=== PATIENT | female | born 1950 | race Caucasian/White ===

== ENCOUNTER → 2018-11-13 | Outpatient (CLI) | payer MEDICARE ==
[~2018-11-13] MED LIST: ALLER-TEC D 5-1 EACH PO; ALLERGY10 MG PO; CHOL10002 PO; ESTR2 PO; FLUSAL5005 INH; Flonase 0.05% N16 GM INH; LEVLIO1 PO; LEVSOD50 PO; MAGNESIUM100 MG PO; MAGNESIUM400 MG PO; NASACORT10.8 ML; NEBI10 PO; NEBI5 PO; Omeprazole20 M1; PRED10 PO; PSYL5.85P PO; RED YEAST RICE600 MG PO; VITAMIN D32000 UNIT PO; [UNRECOGNIZED DRUG - OTHER] INH
== END | disposition home or self-care (01) ==
LOC: LAB SHORT 07:59 → PLD 07:59
DX: K11.6 Mucocele of salivary gland (principal)
CPT/HCPCS: 88305; 88313

== ENCOUNTER 2019-01-29 23:29 | Observation (INO) | payer MEDICARE ==
[~2019-01-29] VITALS: Ht 170.2 cm; Wt 83.3 kg
[2019-01-30 00:13] LABS: BASOPHILS ABSOLUTE AUTO 0.04 K/mm3 (0.00-0.23); BASOPHILS PERCENT AUTO 0 % (0-2); EOSINOPHILS ABSOLUTE AUTO 1.42 K/mm3 (0.00-0.68); EOSINOPHILS PERCENT AUTO 12 % (0-6); Hematocrit 46.6 % (33.0-51.0); IMMATURE GRAN ABSOLUTE AUTO 0.05 K/mm3 (0.00-0.10); IMMATURE GRAN PERCENT AUTO 0 % (0-1); LYMPHOCYTES ABSOLUTE AUTO 5.35 K/mm3 (0.84-5.20); LYMPHOCYTES PERCENT AUTO 45 % (21-46); MONOCYTES ABSOLUTE AUTO 0.71 K/mm3 (0.16-1.47); MONOCYTES PERCENT AUTO 6 % (4-13); Mean Corpuscular HGB 30.3 pg (26.0-34.0); Mean Corpuscular HGB Conc 32.2 g/dL (31.5-36.5); Mean Corpuscular Volume 94 fL (80-100); NEUTROPHILS ABSOLUTE AUTO 4.32 K/mm3 (1.96-9.15); NEUTROPHILS PERCENT AUTO 36 % (41-73); Platelet Count 270 K/mm3 (150-400); RDW Coefficient Variation 14.8 % (11.7-14.2); RDW Standard Deviation 51.4 fL (35.1-46.3); Red Blood Cell Count 4.95 M/mm3 (3.80-5.20); White Blood Cell Count 11.89 K/mm3 (4.00-11.30)
[2019-01-30 00:25] LABS: Source, Urine Clean Catch
[2019-01-30 00:30] LABS: Bilirubin, Urine Neg (Neg); Blood, Urine Neg (Neg); Glucose Qualitative, Urine Neg (Neg); Ketones, Urine Neg (Neg); Leukocyte Esterase, Urine Neg (Neg); Nitrite, Urine Neg (Neg); Protein, Urine Neg (Neg); Urobilinogen, Urine NORM (Normal); pH, Urine 6.5 (5.0-8.0)
[2019-01-30 00:31] LABS: Alanine Aminotransfer (ALT/SGP 32 U/L (12-78); Albumin/Globulin Ratio 1.1 (0.8-1.8); Alk Phos 50 U/L (50-136); Anion Gap 8 mmol/L (6-16); Aspartate Aminotrans (AST/SGOT 17 U/L (12-37); Bilirubin, Total 0.5 mg/dL (0.1-1.0); Blood Urea Nitrogen 12 mg/dL (8-24); Bun/Creatinine Ratio 15.9 (12.0-20.0); CO2, Blood 27 mmol/L (21-32); Calcium, Blood 8.2 mg/dL (8.5-10.1); Chloride, Blood 109 mmol/L (98-108); Creatinine, Blood 0.75 mg/dL (0.40-1.00); Globulin, Blood 2.8 g/dL (2.2-4.0); Glomerular Filtration Rate >60 (60-); Glucose, Blood 85 mg/dL (70-99); Potassium, Blood 3.5 mmol/L (3.5-5.5); Sodium, Blood 144 mmol/L (136-145); Total Protein, Blood 5.8 g/dL (6.4-8.2)
[2019-01-30 00:32] LABS: Appearance, Urine Clear (Clear); Color, Urine Yellow (P-Yellow)
[2019-01-30] MEDS ORDERED: Prednisone10 MG PO ×2 (01:51→11:38)
[2019-01-30] MEDS ORDERED: FLUT1DIS8 INH (01:51)
[2019-01-30] MEDS ORDERED: Activella 0.5-1 EACH PO (01:52)
[2019-01-30] MEDS ORDERED: METO50 PO (01:52)
[2019-01-30] MEDS ORDERED: LEVSOD100 PO (01:53)
[2019-01-30] MEDS ORDERED: BUDE.25 NEB (01:53)
[2019-01-30] MEDS ORDERED: OMEPRAZOLE20 MG PO (06:37)
--- NOTE | 2019-01-30 07:13 | NUR ---
PT ARRIVED APPROX 0545. NOTED HER TONGUE SEEMED TO TAKE UP MOST OF HER MOUTH AND SIDES OF FACE WERE POCKETS OF FLUID AND UNDER HER CHIN. NO C/O PAIN. REPORT GIVEN TO SARABJIT COLINDRES.
[2019-01-30 08:23] LABS: Hematocrit 49.1 % (33.0-51.0); Hemoglobin 15.6 g/dL (11.5-16.0); Mean Corpuscular HGB Conc 31.8 g/dL (31.5-36.5); Mean Corpuscular Volume 94 fL (80-100); RDW Coefficient Variation 14.8 % (11.7-14.2); RDW Standard Deviation 51.3 fL (35.1-46.3); White Blood Cell Count 8.62 K/mm3 (4.00-11.30)
[2019-01-30 08:33] LABS: Alanine Aminotransfer (ALT/SGP 33 U/L (12-78); Albumin, Blood 2.8 g/dL (3.4-5.0); Alk Phos 51 U/L (50-136); Anion Gap 8 mmol/L (6-16); Aspartate Aminotrans (AST/SGOT 18 U/L (12-37); Bilirubin, Total 0.7 mg/dL (0.1-1.0); Blood Urea Nitrogen 12 mg/dL (8-24); Bun/Creatinine Ratio 21.1 (12.0-20.0); CO2, Blood 20 mmol/L (21-32); Calcium, Blood 7.9 mg/dL (8.5-10.1); Chloride, Blood 112 mmol/L (98-108); Creatinine, Blood 0.57 mg/dL (0.40-1.00); Globulin, Blood 2.9 g/dL (2.2-4.0); Glomerular Filtration Rate >60 (60-); Glucose, Blood 121 mg/dL (70-99); Sodium, Blood 140 mmol/L (136-145); Total Protein, Blood 5.7 g/dL (6.4-8.2)
[2019-01-30 08:34] LABS: Mean Platelet Volume 11.7 fL (9.1-12.4); Platelet Count 129 K/mm3 (150-400)
[2019-01-30] MEDS ORDERED: BENADRYL25 MG PO (11:40)
[2019-01-30] MEDS ORDERED: FAMO20 PO (11:41)
--- NOTE | 2019-01-30 15:39 | NUR ---
SHIFT SUMMARY PT A&O, INDEPENDENT IN AND TO [facility] [place]. ADMITTED PRIOR TO START OF DAY SHIFT FOR FACIAL SWELLING, POSSIBLE ANGIOEDEMA. TONGUE AND THROAT SWOLLEN EARLIER, BUT IMPROVED SOME AFTER ADMIT AND STEROIDS. DR LOPEZ IN TO SEE PT, NEW ORDERS PLACED. ATTEMPTED ENT CONSULT FOR DR DOBBS, BUT NOT AVAILABLE UNTIL NEXT WEEK. DR LOPEZ NOTIFIED, NEW ORDERS PLACED TO D/C PT TO HOME ON PREDNISONE AND BENEDRYL AND TO FOLLOW UP WITH PCP AND SEND OUT LABS ORDERED. PT VERBALIZED UNDERSTANDING. TO TO TAKE PT HOME. TELE MX AND IV SITE D/C'D. TELE MX REPORTED PT ST AFTER GETTING UP TO [facility] [place] AND BACK. PT ON STEROIDS AND REPORTED THAT SHE IS ALWAYS ST D/T THE STEROIDS AND HADN'T YET HAD HER METOPROLOL. NO C/O. DENIED FURTHER NEEDS.
[2019-01-31 06:07] LABS: COMPLEMENT C3, SERUM 88 mg/dL (82-167); COMPLEMENT C4, SERUM 23 mg/dL (14-44)
[2019-02-27] MEDS ORDERED: OMEPRAZOLE20 MG PO (11:54)
== END 2019-01-30 12:13 | disposition home or self-care (01) ==
LOC: ER 23:29 → MEDS 23:30 → ENPENDDIS 01-30 11:00 → MEDS 01-30 12:13
PROVIDERS: Internal Medicine; Physician Assistant; ADMIT Internal Medicine
DX: T78.3XXA Angioneurotic edema, initial encounter (principal); E03.9 Hypothyroidism, unspecified; I10 Essential (primary) hypertension; J45.909 Unspecified asthma, uncomplicated; Z79.51 Long term (current) use of inhaled steroids; Z79.52 Long term (current) use of systemic steroids; Z79.899 Other long term (current) drug therapy; Z88.1 Allergy status to other antibiotic agents; Z88.2 Allergy status to sulfonamides; Z88.8 Allergy status to other drugs, medicaments and biological substances
CPT/HCPCS: 36415; 70491; 71046; 80053; 81003; 85025; 85027; 86160; 86161; 87081; 96374; 96375; 96376; 99285-25; G0378; J2930; Q0163; Q9967

== ENCOUNTER 2019-02-19 08:43 | Emergency (ER) | payer MEDICARE ==
[~2019-02-19] VITALS: Ht 170.2 cm; Wt 81.7 kg
[~2019-02-19 08:43] MED LIST changes: +Activella 0.5-1 EACH PO; +BENADRYL25 MG PO; +BUDE.25 NEB; +FAMO20 PO; +FLUT1DIS8 INH; +LEVSOD100 PO; +METO50 PO; +OMEPRAZOLE20 MG PO; +Prednisone10 MG PO
[2019-02-19] MEDS ORDERED: PRED5 PO (09:22)
[2019-02-19 09:53] LABS: BASOPHILS ABSOLUTE AUTO 0.02 K/mm3 (0.00-0.23); BASOPHILS PERCENT AUTO 0 % (0-2); EOSINOPHILS ABSOLUTE AUTO 0.82 K/mm3 (0.00-0.68); EOSINOPHILS PERCENT AUTO 8 % (0-6); Hematocrit 43.7 % (33.0-51.0); Hemoglobin 14.4 g/dL (11.5-16.0); IMMATURE GRAN ABSOLUTE AUTO 0.03 K/mm3 (0.00-0.10); IMMATURE GRAN PERCENT AUTO 0 % (0-1); LYMPHOCYTES ABSOLUTE AUTO 2.78 K/mm3 (0.84-5.20); LYMPHOCYTES PERCENT AUTO 28 % (21-46); MONOCYTES ABSOLUTE AUTO 0.62 K/mm3 (0.16-1.47); MONOCYTES PERCENT AUTO 6 % (4-13); Mean Corpuscular HGB 30.8 pg (26.0-34.0); Mean Corpuscular Volume 93 fL (80-100); Mean Platelet Volume 9.5 fL (9.1-12.4); NEUTROPHILS ABSOLUTE AUTO 5.67 K/mm3 (1.96-9.15); NEUTROPHILS PERCENT AUTO 57 % (41-73); Platelet Count 306 K/mm3 (150-400); RDW Coefficient Variation 15.1 % (11.7-14.2); RDW Standard Deviation 51.8 fL (35.1-46.3); Red Blood Cell Count 4.68 M/mm3 (3.80-5.20); White Blood Cell Count 9.94 K/mm3 (4.00-11.30)
[2019-02-19 10:09] LABS: Anion Gap 5 mmol/L (6-16); Blood Urea Nitrogen 10 mg/dL (8-24); Bun/Creatinine Ratio 16.1 (12.0-20.0); CO2, Blood 27 mmol/L (21-32); Calcium, Blood 8.3 mg/dL (8.5-10.1); Chloride, Blood 110 mmol/L (98-108); Creatinine, Blood 0.62 mg/dL (0.40-1.00); Glomerular Filtration Rate >60 (60-); Glucose, Blood 83 mg/dL (70-99); Potassium, Blood 3.6 mmol/L (3.5-5.5); Sodium, Blood 142 mmol/L (136-145)
[2019-02-19] MEDS ORDERED: ZYRTEC10 M2 PO (11:06)
[2019-02-19] MEDS ORDERED: Prednisone20 MG PO (11:06)
[2019-02-27] MEDS ORDERED: OMEPRAZOLE20 MG PO (11:54)
== END 2019-02-19 11:26 | disposition home or self-care (01) ==
LOC: ER 08:43
PROVIDERS: Emergency Medicine
DX: T78.3XXA Angioneurotic edema, initial encounter (principal); Z88.1 Allergy status to other antibiotic agents; Z88.2 Allergy status to sulfonamides; Z88.8 Allergy status to other drugs, medicaments and biological substances; Z79.899 Other long term (current) drug therapy; Z79.52 Long term (current) use of systemic steroids; I10 Essential (primary) hypertension; E03.9 Hypothyroidism, unspecified
CPT/HCPCS: 36415; 80048; 85025; 96374; 99283-25; J2930

== ENCOUNTER 2019-03-08 09:12 | Day surgery (SDC) | payer MEDICARE ==
[~2019-03-08] VITALS: Ht 170.2 cm; Wt 81.4 kg
[~2019-03-08 09:12] MED LIST changes: +METO25 PO; -METO50 PO; +PRED5 PO; +Prednisone20 MG PO; +ZYRTEC10 M2 PO
--- NOTE | 2019-03-08 12:19 | NUR ---
03/08/19 1219 [place] LATE ENTRY: PT TRANSFERED TO STEP DOWN AFTER PROCEDURE. POST PROCEDURE VITAL SIGNS ARE BP 118/74 HR 122BPM AND O2 98% IN RA. RESP 18. PT AWAKE, ALERT, ORIENTED. PT C/O CHEST PAIN 7/10 BETWEEN SHOULDER BLADES. PT PLACED ON O2 VIA NASAL CANULA AT 3L. 12LEAD EKG DONE. DR. ANDERSON AND DR. CLEANING AWARE OF PT'S C/O. DR. ANDERSON AT BEDSIDE AND ORDERED TO GIVE 25MCG OF FENTANYL FOR PAIN VIA IV. DR. CLEANING ALSO AT BEDSIDE AND CONVERSED WITH PT AND FAMILY. DR. CLEANING ORDERED TO TRANSFER PT TO ER. REPORT GIVEN TO ER NURSE. PT TRANSFERED TO 11 IN ER.
== END 2019-03-08 11:45 | disposition other institution (70) ==
LOC: ORSCSDS 09:12
PROVIDERS: Internal Medicine Gastroenterology
PROC: 0DB78ZX Excision of Stomach, Pylorus, Via Natural or Artificial Opening Endoscopic, Diagnostic (ICD-10-PCS; principal; 2019-03-08 10:30)
PROC: 0DB98ZX Excision of Duodenum, Via Natural or Artificial Opening Endoscopic, Diagnostic (ICD-10-PCS; principal; 2019-03-08 10:30)
PROC: 0DB58ZX Excision of Esophagus, Via Natural or Artificial Opening Endoscopic, Diagnostic (ICD-10-PCS; principal; 2019-03-08 10:30)
PROC: 0D757ZZ Dilation of Esophagus, Via Natural or Artificial Opening (ICD-10-PCS; principal; 2019-03-08 10:30)
PROC: 0DBL8ZX Excision of Transverse Colon, Via Natural or Artificial Opening Endoscopic, Diagnostic (ICD-10-PCS; principal; 2019-03-08 10:30)
PROC: 0DBH8ZX Excision of Cecum, Via Natural or Artificial Opening Endoscopic, Diagnostic (ICD-10-PCS; principal; 2019-03-08 10:30)
DX: R13.10 Dysphagia, unspecified (principal); K21.9 Gastro-esophageal reflux disease without esophagitis; Z12.11 Encounter for screening for malignant neoplasm of colon; Z86.010 Personal history of colon polyps; D12.3 Benign neoplasm of transverse colon; D12.0 Benign neoplasm of cecum; K44.9 Diaphragmatic hernia without obstruction or gangrene; K22.5 Diverticulum of esophagus, acquired; K22.2 Esophageal obstruction; I10 Essential (primary) hypertension; E03.9 Hypothyroidism, unspecified; E78.00 Pure hypercholesterolemia, unspecified; Z79.899 Other long term (current) drug therapy
CPT/HCPCS: 88305; 88342; J2250; J2704; J3010; J7120

== ENCOUNTER 2019-03-08 11:56 | Emergency (ER) | payer MEDICARE ==
[~2019-03-08] VITALS: Ht 170.2 cm; Wt 81.2 kg
[2019-03-08 12:32] LABS: BASOPHILS ABSOLUTE AUTO 0.04 K/mm3 (0.00-0.23); BASOPHILS PERCENT AUTO 0 % (0-2); EOSINOPHILS ABSOLUTE AUTO 2.07 K/mm3 (0.00-0.68); EOSINOPHILS PERCENT AUTO 14 % (0-6); Hematocrit 45.5 % (33.0-51.0); Hemoglobin 14.9 g/dL (11.5-16.0); IMMATURE GRAN ABSOLUTE AUTO 0.07 K/mm3 (0.00-0.10); IMMATURE GRAN PERCENT AUTO 1 % (0-1); LYMPHOCYTES ABSOLUTE AUTO 4.27 K/mm3 (0.84-5.20); LYMPHOCYTES PERCENT AUTO 30 % (21-46); MONOCYTES ABSOLUTE AUTO 1.19 K/mm3 (0.16-1.47); MONOCYTES PERCENT AUTO 8 % (4-13); Mean Corpuscular HGB 30.8 pg (26.0-34.0); Mean Corpuscular HGB Conc 32.7 g/dL (31.5-36.5); Mean Corpuscular Volume 94 fL (80-100); Mean Platelet Volume 9.8 fL (9.1-12.4); NEUTROPHILS ABSOLUTE AUTO 6.83 K/mm3 (1.96-9.15); NEUTROPHILS PERCENT AUTO 47 % (41-73); Platelet Count 249 K/mm3 (150-400); RDW Coefficient Variation 15.6 % (11.7-14.2); RDW Standard Deviation 53.4 fL (35.1-46.3); Red Blood Cell Count 4.84 M/mm3 (3.80-5.20); White Blood Cell Count 14.47 K/mm3 (4.00-11.30)
[2019-03-08 12:51] LABS: Albumin, Blood 2.8 g/dL (3.4-5.0); Anion Gap 8 mmol/L (6-16); Blood Urea Nitrogen 13 mg/dL (8-24); Bun/Creatinine Ratio 19.8 (12.0-20.0); CO2, Blood 26 mmol/L (21-32); Calcium, Blood 8.1 mg/dL (8.5-10.1); Chloride, Blood 111 mmol/L (98-108); Creatinine, Blood 0.66 mg/dL (0.40-1.00); Glomerular Filtration Rate >60 (60-); Glucose, Blood 85 mg/dL (70-99); Potassium, Blood 3.1 mmol/L (3.5-5.5); Sodium, Blood 145 mmol/L (136-145)
[2019-03-08 12:54] LABS: Alanine Aminotransfer (ALT/SGP 26 U/L (12-78); Albumin/Globulin Ratio 1.1 (0.8-1.8); Alk Phos 44 U/L (50-136); Aspartate Aminotrans (AST/SGOT 21 U/L (12-37); Bilirubin, Total 0.8 mg/dL (0.1-1.0); Globulin, Blood 2.6 g/dL (2.2-4.0); Total Protein, Blood 5.4 g/dL (6.4-8.2); Troponin I <0.015 ng/mL (0.000-0.040)
== END 2019-03-08 15:58 | disposition short-term general hospital (02) ==
LOC: ER 11:56
PROVIDERS: Emergency Medicine
DX: K22.3 Perforation of esophagus (principal); R07.9 Chest pain, unspecified; I47.1 Supraventricular tachycardia; I10 Essential (primary) hypertension; R00.0 Tachycardia, unspecified; Z88.2 Allergy status to sulfonamides; Z88.1 Allergy status to other antibiotic agents; Z88.8 Allergy status to other drugs, medicaments and biological substances; Z79.899 Other long term (current) drug therapy
CPT/HCPCS: 71045; 74220; 80053; 84484; 85025; 93005; 93010; 96361; 96365; 96375; 96376; 99285-25; C9113; J1170; J2405; J2543; J2550; J7030

== ENCOUNTER 2019-11-17 19:30 | Emergency (ER) | payer MEDICARE ==
[~2019-11-17] VITALS: Ht 170.2 cm; Wt 80.7 kg
== END 2019-11-17 23:06 | disposition home or self-care (01) ==
LOC: ER 19:30
DX: S80.11XA Contusion of right lower leg, initial encounter (principal); I10 Essential (primary) hypertension; E03.9 Hypothyroidism, unspecified; Z88.2 Allergy status to sulfonamides; Z88.1 Allergy status to other antibiotic agents; Z88.8 Allergy status to other drugs, medicaments and biological substances; Z79.899 Other long term (current) drug therapy; Z79.52 Long term (current) use of systemic steroids; X58.XXXA Exposure to other specified factors, initial encounter
CPT/HCPCS: 93971; 99283-25

== ENCOUNTER 2019-12-13 08:33 | Emergency (ER) | payer MEDICARE ==
[~2019-12-13] VITALS: Ht 170.2 cm; Wt 81.2 kg
[2019-12-13 10:18] LABS: BASOPHILS PERCENT AUTO 1 % (0-2); EOSINOPHILS PERCENT AUTO 4 % (0-6); Hematocrit 37.7 % (33.0-51.0); IMMATURE GRAN ABSOLUTE AUTO 0.05 K/mm3 (0.00-0.10); IMMATURE GRAN PERCENT AUTO 0 % (0-1); LYMPHOCYTES ABSOLUTE AUTO 2.35 K/mm3 (0.84-5.20); LYMPHOCYTES PERCENT AUTO 15 % (21-46); MONOCYTES ABSOLUTE AUTO 1.61 K/mm3 (0.16-1.47); MONOCYTES PERCENT AUTO 10 % (4-13); Mean Corpuscular HGB 29.1 pg (26.0-34.0); Mean Corpuscular HGB Conc 31.8 g/dL (31.5-36.5); Mean Corpuscular Volume 91 fL (80-100); Mean Platelet Volume 9.6 fL (9.1-12.4); NEUTROPHILS ABSOLUTE AUTO 11.34 K/mm3 (1.96-9.15); NEUTROPHILS PERCENT AUTO 71 % (41-73); Platelet Count 333 K/mm3 (150-400); RDW Coefficient Variation 14.8 % (11.7-14.2); RDW Standard Deviation 49.8 fL (35.1-46.3); Red Blood Cell Count 4.13 M/mm3 (3.80-5.20); White Blood Cell Count 16.05 K/mm3 (4.00-11.30)
[2019-12-13 10:46] LABS: Alanine Aminotransfer (ALT/SGP 32 U/L (12-78); Albumin, Blood 3.4 g/dL (3.4-5.0); Albumin/Globulin Ratio 1.1 (0.8-1.8); Alk Phos 86 U/L (50-136); Anion Gap 7 mmol/L (6-16); Aspartate Aminotrans (AST/SGOT 24 U/L (12-37); Bilirubin, Total 0.5 mg/dL (0.1-1.0); Blood Urea Nitrogen 13 mg/dL (8-24); Bun/Creatinine Ratio 17.8 (12.0-20.0); CO2, Blood 26 mmol/L (21-32); Chloride, Blood 111 mmol/L (98-108); Creatinine, Blood 0.73 mg/dL (0.40-1.00); Globulin, Blood 3.1 g/dL (2.2-4.0); Glomerular Filtration Rate >60 (60-); Glucose, Blood 92 mg/dL (70-99); Potassium, Blood 3.9 mmol/L (3.5-5.5); Sodium, Blood 144 mmol/L (136-145); Total Protein, Blood 6.5 g/dL (6.4-8.2)
== END 2019-12-13 13:27 | disposition home or self-care (01) ==
LOC: ER 08:33
PROVIDERS: Physician Assistant
DX: G45.3 Amaurosis fugax (principal); J45.909 Unspecified asthma, uncomplicated; E03.9 Hypothyroidism, unspecified; I10 Essential (primary) hypertension; Z79.52 Long term (current) use of systemic steroids; Z79.899 Other long term (current) drug therapy; Z79.51 Long term (current) use of inhaled steroids; Z88.2 Allergy status to sulfonamides; Z88.1 Allergy status to other antibiotic agents; Z88.8 Allergy status to other drugs, medicaments and biological substances
CPT/HCPCS: 36415; 70450; 70551; 80053; 85025; 99284-25

== ENCOUNTER 2020-02-28 18:40 | Emergency (ER) | payer MEDICARE ==
[~2020-02-28] VITALS: Ht 170.2 cm; Wt 85.6 kg
[~2020-02-28 18:40] MED LIST changes: -FLUT1DIS8 INH; -LEVSOD100 PO; -METO25 PO; -PRED5 PO
[2020-02-28 19:24] LABS: BASOPHILS PERCENT AUTO 0 % (0-2); EOSINOPHILS ABSOLUTE AUTO 0.08 K/mm3 (0.00-0.68); EOSINOPHILS PERCENT AUTO 0 % (0-6); Hemoglobin 13.8 g/dL (11.5-16.0); IMMATURE GRAN ABSOLUTE AUTO 0.09 K/mm3 (0.00-0.10); IMMATURE GRAN PERCENT AUTO 0 % (0-1); LYMPHOCYTES ABSOLUTE AUTO 2.36 K/mm3 (0.84-5.20); LYMPHOCYTES PERCENT AUTO 10 % (21-46); MONOCYTES ABSOLUTE AUTO 1.55 K/mm3 (0.16-1.47); MONOCYTES PERCENT AUTO 7 % (4-13); Mean Corpuscular HGB Conc 31.4 g/dL (31.5-36.5); Mean Corpuscular Volume 92 fL (80-100); Mean Platelet Volume 9.6 fL (9.1-12.4); NEUTROPHILS ABSOLUTE AUTO 18.77 K/mm3 (1.96-9.15); NEUTROPHILS PERCENT AUTO 82 % (41-73); Platelet Count 337 K/mm3 (150-400); RDW Coefficient Variation 13.5 % (11.7-14.2); RDW Standard Deviation 46.3 fL (35.1-46.3); Red Blood Cell Count 4.76 M/mm3 (3.80-5.20); White Blood Cell Count 22.95 K/mm3 (4.00-11.30)
[2020-02-28 19:34] LABS: Alanine Aminotransfer (ALT/SGP 30 U/L (12-78); Albumin, Blood 3.2 g/dL (3.4-5.0); Albumin/Globulin Ratio 0.9 (0.8-1.8); Alk Phos 62 U/L (50-136); Anion Gap 7 mmol/L (6-16); Aspartate Aminotrans (AST/SGOT 18 U/L (12-37); Bilirubin, Total 0.8 mg/dL (0.1-1.0); Blood Urea Nitrogen 17 mg/dL (8-24); Bun/Creatinine Ratio 22.3 (12.0-20.0); CO2, Blood 23 mmol/L (21-32); Calcium, Blood 8.3 mg/dL (8.5-10.1); Chloride, Blood 106 mmol/L (98-108); Creatinine, Blood 0.76 mg/dL (0.40-1.00); Globulin, Blood 3.4 g/dL (2.2-4.0); Glomerular Filtration Rate >60 (60-); Glucose, Blood 143 mg/dL (70-99); Sodium, Blood 136 mmol/L (136-145); Total Protein, Blood 6.6 g/dL (6.4-8.2)
[2020-02-28] MEDS ORDERED: CEFDINIR PO (20:14)
[2020-02-28] MEDS ORDERED: FLAGYL500 M1 PO (20:15)
[2020-02-28] MEDS ORDERED: Pepcid20 MG PO (20:16)
[2020-02-28] MEDS ORDERED: LEVSOD100 PO (20:16)
[2020-02-28] MEDS ORDERED: ATOR10 PO (20:16)
[2020-02-28] MEDS ORDERED: OMEPRAZOLE20 MG PO (20:17)
[2020-02-28] MEDS ORDERED: METO25 PO (20:17)
[2020-02-28] MEDS ORDERED: Prednisone10 MG PO (20:17)
[2020-02-28] MEDS ORDERED: Aspir 8181 MG PO (20:18)
[2020-02-28] MEDS ORDERED: MULTIPLE VITAM1 EACH PO (20:18)
[2020-02-28] MEDS ORDERED: FLUT1DIS8 INH (20:18)
[2020-02-28] MEDS ORDERED: C COMPLEX1000 M1 PO (20:50)
== END 2020-02-28 23:20 | disposition home or self-care (01) ==
LOC: ER 18:40
PROVIDERS: Emergency Medicine
DX: L02.211 Cutaneous abscess of abdominal wall (principal); D72.829 Elevated white blood cell count, unspecified; E03.9 Hypothyroidism, unspecified; I10 Essential (primary) hypertension; Z88.5 Allergy status to narcotic agent; Z88.1 Allergy status to other antibiotic agents; Z79.52 Long term (current) use of systemic steroids; Z79.82 Long term (current) use of aspirin; Z79.899 Other long term (current) drug therapy
CPT/HCPCS: 36415; 80053; 83605; 83690; 85025; 87040; 96365; 96367; 96375; 96376; 99284-25; J2405; J2543; J3370

== ENCOUNTER → 2020-04-04 | Outpatient (CLI) | payer MEDICARE ==
[~2020-04-04] MED LIST changes: +AMOCLA875 PO; +ATOR10 PO; +Aspir 8181 MG PO; +C COMPLEX1000 M1 PO; +CEFDINIR PO; +FLAGYL500 M1 PO; +FLUT1DIS8 INH; +LEVSOD100 PO; +METO25 PO; +MULTIPLE VITAM1 EACH PO; +Pepcid20 MG PO; +VISBIOME 112.51 EACH PO
[2020-04-04 13:28] LABS: Source, Urine Clean Catch
[2020-04-04 15:08] LABS: Appearance, Urine Clear (Clear); Bilirubin, Urine Neg (Neg); Blood, Urine 1+ (Neg); Color, Urine Yellow (P-Yellow); Glucose Qualitative, Urine Neg (Neg); Ketones, Urine Neg (Neg); Leukocyte Esterase, Urine 1+ (Neg); Nitrite, Urine Neg (Neg); Protein, Urine Neg (Neg); Specific Gravity, Urine 1.005 (1.003-1.022); Urobilinogen, Urine NORM (Normal); pH, Urine 6.5 (5.0-8.0)
[2020-04-04 15:24] LABS: Bacteria Many /hpf; Red Blood Cells, Urine 0-2 /hpf (0-2); Squamous Epithelial Cells Not Seen /hpf (Few)
== END ==
LOC: LAB 11:45 → LAB SHORT 11:45
PROVIDERS: Family Medicine
DX: L02.211 Cutaneous abscess of abdominal wall (principal); N39.0 Urinary tract infection, site not specified
CPT/HCPCS: 81001; 87070; 87075; 87077; 87086; 87147; 87186; 87205

== ENCOUNTER → 2020-05-28 | Outpatient (CLI) | payer MEDICARE ==
[~2020-05-28] MED LIST changes: -AMOCLA875 PO; -VISBIOME 112.51 EACH PO
== END ==
LOC: LAB SHORT 11:42
DX: D36.7 Benign neoplasm of other specified sites (principal)
CPT/HCPCS: 88305

== ENCOUNTER → 2020-06-23 | Outpatient (CLI) | payer MEDICARE ==
[~2020-06-23] MED LIST changes: +AMOCLA875 PO; +VISBIOME 112.51 EACH PO
[2020-06-23 18:58] LABS: BASOPHILS ABSOLUTE AUTO 0.07 K/mm3 (0.00-0.23); BASOPHILS PERCENT AUTO 0 % (0-2); EOSINOPHILS ABSOLUTE AUTO 0.13 K/mm3 (0.00-0.68); EOSINOPHILS PERCENT AUTO 1 % (0-6); Hematocrit 40.1 % (33.0-51.0); Hemoglobin 12.5 g/dL (11.5-16.0); IMMATURE GRAN ABSOLUTE AUTO 0.09 K/mm3 (0.00-0.10); IMMATURE GRAN PERCENT AUTO 1 % (0-1); LYMPHOCYTES ABSOLUTE AUTO 2.95 K/mm3 (0.84-5.20); LYMPHOCYTES PERCENT AUTO 15 % (21-46); MONOCYTES ABSOLUTE AUTO 1.77 K/mm3 (0.16-1.47); MONOCYTES PERCENT AUTO 9 % (4-13); Mean Corpuscular HGB 26.2 pg (26.0-34.0); Mean Corpuscular HGB Conc 31.2 g/dL (31.5-36.5); Mean Corpuscular Volume 84 fL (80-100); Mean Platelet Volume 9.1 fL (9.1-12.4); NEUTROPHILS ABSOLUTE AUTO 14.61 K/mm3 (1.96-9.15); NEUTROPHILS PERCENT AUTO 74 % (41-73); Platelet Count 403 K/mm3 (150-400); RDW Coefficient Variation 15.2 % (11.7-14.2); RDW Standard Deviation 45.9 fL (35.1-46.3); Red Blood Cell Count 4.78 M/mm3 (3.80-5.20); White Blood Cell Count 19.62 K/mm3 (4.00-11.30)
== END | disposition home or self-care (01) ==
LOC: LAB SHORT 18:54 → LAB EV 18:54
PROVIDERS: Physician Assistant
DX: K92.2 Gastrointestinal hemorrhage, unspecified (principal)
CPT/HCPCS: 85025

== ENCOUNTER 2020-06-24 10:34 | Inpatient (IN) | payer MEDICARE ==
[~2020-06-24] VITALS: Ht 170.2 cm; Wt 85.4 kg
[~2020-06-24 10:34] MED LIST changes: -AMOCLA875 PO; -VISBIOME 112.51 EACH PO
[2020-06-24 13:35] LABS: BASOPHILS ABSOLUTE AUTO 0.08 K/mm3 (0.00-0.23); BASOPHILS PERCENT AUTO 0 % (0-2); EOSINOPHILS ABSOLUTE AUTO 0.28 K/mm3 (0.00-0.68); EOSINOPHILS PERCENT AUTO 2 % (0-6); Hematocrit 37.8 % (33.0-51.0); Hemoglobin 11.8 g/dL (11.5-16.0); IMMATURE GRAN PERCENT AUTO 1 % (0-1); LYMPHOCYTES ABSOLUTE AUTO 2.55 K/mm3 (0.84-5.20); LYMPHOCYTES PERCENT AUTO 13 % (21-46); MONOCYTES PERCENT AUTO 11 % (4-13); Mean Corpuscular HGB 26.3 pg (26.0-34.0); Mean Corpuscular HGB Conc 31.2 g/dL (31.5-36.5); Mean Corpuscular Volume 84 fL (80-100); Mean Platelet Volume 9.3 fL (9.1-12.4); NEUTROPHILS ABSOLUTE AUTO 13.96 K/mm3 (1.96-9.15); NEUTROPHILS PERCENT AUTO 73 % (41-73); Platelet Count 341 K/mm3 (150-400); RDW Coefficient Variation 15.2 % (11.7-14.2); RDW Standard Deviation 46.6 fL (35.1-46.3); Red Blood Cell Count 4.49 M/mm3 (3.80-5.20); White Blood Cell Count 19.07 K/mm3 (4.00-11.30)
[2020-06-24 13:53] LABS: Alanine Aminotransfer (ALT/SGP 24 U/L (12-78); Albumin/Globulin Ratio 0.9 (0.8-1.8); Alk Phos 59 U/L (50-136); Anion Gap 8 mmol/L (6-16); Aspartate Aminotrans (AST/SGOT 15 U/L (12-37); Bilirubin, Total 0.6 mg/dL (0.1-1.0); Blood Urea Nitrogen 12 mg/dL (8-24); Bun/Creatinine Ratio 16.5 (12.0-20.0); CO2, Blood 24 mmol/L (21-32); Chloride, Blood 105 mmol/L (98-108); Creatinine, Blood 0.73 mg/dL (0.40-1.00); Globulin, Blood 3.2 g/dL (2.2-4.0); Glomerular Filtration Rate >60 (60-); Glucose, Blood 104 mg/dL (70-99); Phosphorus, Blood 3.5 mg/dL (2.5-4.9); Potassium, Blood 3.6 mmol/L (3.5-5.5); Sodium, Blood 137 mmol/L (136-145); Total Protein, Blood 6.2 g/dL (6.4-8.2)
--- NOTE | 2020-06-24 17:29 | NUR ---
SHIFT SUMMARY PATIENT TO THE FLOOR MID AFTERNOON. PATIENT REPORTS LESS BLOODY STOOLS THAT WERE PREVIOUSLY OCCURING. PATIENT REPORTS 1 BLOODY STOOL SINCE ADMISSION. PATIENT DENIES PAIN OR WEAKNESS THIS AFTERNOON. PATIENT DOWN FOR CT THIS SHIFT. PATIENT CURRENTLY SITTING UP IN BED VISITING WITH DAUGHTER.
[2020-06-24 22:15] LABS: Hematocrit 35.4 % (33.0-51.0); Hemoglobin 11.2 g/dL (11.5-16.0)
--- NOTE | 2020-06-25 04:36 | NUR ---
PATIENT HAD AN UNEVENTFUL NIGHT. OOB TO BATHROOM WITHOUT SUCCESS PRODUCING STOOL FOR THE GI PANEL. A&OX4, UP INDEPENDENTLY IN ROOM. TOLERATING IV FLUID AND UNASYN WITHOUT DIFFICULTY. Sheila DID HAVE ONE EPISODE WHEN SHE "FELT THE RUMBLING" IN HER LOWER ABDOMEN, BUT THIS QUICKLY RESOLVED AND SHE WENT BACK TO SLEEP
[2020-06-25 05:34] LABS: BASOPHILS ABSOLUTE AUTO 0.09 K/mm3 (0.00-0.23); BASOPHILS PERCENT AUTO 1 % (0-2); EOSINOPHILS ABSOLUTE AUTO 0.45 K/mm3 (0.00-0.68); EOSINOPHILS PERCENT AUTO 3 % (0-6); Hemoglobin 10.6 g/dL (11.5-16.0); IMMATURE GRAN ABSOLUTE AUTO 0.06 K/mm3 (0.00-0.10); IMMATURE GRAN PERCENT AUTO 0 % (0-1); LYMPHOCYTES ABSOLUTE AUTO 2.67 K/mm3 (0.84-5.20); LYMPHOCYTES PERCENT AUTO 15 % (21-46); MONOCYTES PERCENT AUTO 10 % (4-13); Mean Corpuscular HGB 25.9 pg (26.0-34.0); Mean Corpuscular HGB Conc 31.2 g/dL (31.5-36.5); Mean Corpuscular Volume 83 fL (80-100); Mean Platelet Volume 9.6 fL (9.1-12.4); NEUTROPHILS ABSOLUTE AUTO 12.25 K/mm3 (1.96-9.15); NEUTROPHILS PERCENT AUTO 71 % (41-73); Platelet Count 322 K/mm3 (150-400); RDW Coefficient Variation 15.2 % (11.7-14.2); RDW Standard Deviation 45.7 fL (35.1-46.3); White Blood Cell Count 17.32 K/mm3 (4.00-11.30)
[2020-06-25 05:53] LABS: Anion Gap 5 mmol/L (6-16); Blood Urea Nitrogen 7 mg/dL (8-24); Bun/Creatinine Ratio 10.3 (12.0-20.0); CO2, Blood 26 mmol/L (21-32); Calcium, Blood 7.9 mg/dL (8.5-10.1); Chloride, Blood 109 mmol/L (98-108); Creatinine, Blood 0.68 mg/dL (0.40-1.00); Glomerular Filtration Rate >60 (60-); Glucose, Blood 91 mg/dL (70-99); Potassium, Blood 3.2 mmol/L (3.5-5.5); Sodium, Blood 140 mmol/L (136-145)
[2020-06-25 08:05] LABS: Adenovirus F 40/41 Not Detected (NOT DETECT); Astrovirus Not Detected (NOT DETECT); Campylobacter Sp Not Detected (NOT DETECT); Cryptosporidium Not Detected (NOT DETECT); Cyclospora Cayetanensis Not Detected (NOT DETECT); E. Coli O157 Not Detected (NOT DETECT); Entamoeba Histolytica Not Detected (NOT DETECT); Enteroaggregative E. coli-EAEC Not Detected (NOT DETECT); Enteropathogenic E. coli-EPEC Not Detected (NOT DETECT); Enterotoxigenic E. coli-ETEC Not Detected (NOT DETECT); Giardia Lamblia Not Detected (NOT DETECT); Norovirus GI/GII Not Detected (NOT DETECT); Plesiomonas Shigelloides Not Detected (NOT DETECT); Rotavirus A Not Detected (NOT DETECT); Salmonella Sp Not Detected (NOT DETECT); Sapovirus Not Detected (NOT DETECT); Shiga Toxin-prod E. coli-STEC Not Detected (NOT DETECT); Shigella/Enteroin E. coli-EIEC Not Detected (NOT DETECT); Vibrio Cholerae Not Detected (NOT DETECT); Vibrio Sp Not Detected (NOT DETECT); Yersinia Enterocolitica Not Detected (NOT DETECT)
--- NOTE | 2020-06-25 11:00 | NUR ---
ADMIT: 06/24/20 DISCHARGE: DX: GI hemmorrhage CC: Kesha Overton CALL:RESIDENCE: [facility] - [address] [place] [address]. [id number]: Ya Matson (Daughter) - [phone]: GERD with hiatal hernia, tubular adenoma colon, Zenker's divericulumDME: NoneCCM: NoneLA[facility] - referred 03/28/20
--- NOTE | 2020-06-25 19:37 | NUR ---
a+o, trouble with iv occluding but cheerful, call light in reach, infusing, rm air, looking forward to going home tomorrow, worried that she is still on liquid diet, calls to 's answering machine have not brought any response, bsr shared with noc nurse and pt
--- NOTE | 2020-06-26 04:01 | NUR ---
69 year old Female with complicated GI history direct admit for GI bleed has no s/sx of GI bleed this shift. She is on clear liquid diet tolerating without difficulty. Denies acute abd pain does have tenderness to palpation. Passing flatus. Continues on iv abx Q 6 hrs to treat colitis. Has been on steroids continues on daily oral dose.
[2020-06-26 04:27] LABS: BASOPHILS ABSOLUTE AUTO 0.06 K/mm3 (0.00-0.23); BASOPHILS PERCENT AUTO 0 % (0-2); EOSINOPHILS ABSOLUTE AUTO 0.53 K/mm3 (0.00-0.68); EOSINOPHILS PERCENT AUTO 3 % (0-6); Hematocrit 30.6 % (33.0-51.0); Hemoglobin 9.8 g/dL (11.5-16.0); IMMATURE GRAN ABSOLUTE AUTO 0.09 K/mm3 (0.00-0.10); IMMATURE GRAN PERCENT AUTO 1 % (0-1); LYMPHOCYTES PERCENT AUTO 15 % (21-46); MONOCYTES ABSOLUTE AUTO 1.76 K/mm3 (0.16-1.47); MONOCYTES PERCENT AUTO 10 % (4-13); Mean Corpuscular HGB 26.5 pg (26.0-34.0); Mean Corpuscular Volume 83 fL (80-100); Mean Platelet Volume 9.4 fL (9.1-12.4); NEUTROPHILS ABSOLUTE AUTO 12.79 K/mm3 (1.96-9.15); NEUTROPHILS PERCENT AUTO 71 % (41-73); Platelet Count 303 K/mm3 (150-400); RDW Coefficient Variation 15.1 % (11.7-14.2); RDW Standard Deviation 45.6 fL (35.1-46.3); White Blood Cell Count 17.93 K/mm3 (4.00-11.30)
[2020-06-26 04:46] LABS: Anion Gap 5 mmol/L (6-16); Blood Urea Nitrogen 4 mg/dL (8-24); Bun/Creatinine Ratio 6.4 (12.0-20.0); CO2, Blood 26 mmol/L (21-32); Calcium, Blood 7.8 mg/dL (8.5-10.1); Chloride, Blood 111 mmol/L (98-108); Creatinine, Blood 0.62 mg/dL (0.40-1.00); Glomerular Filtration Rate >60 (60-); Glucose, Blood 87 mg/dL (70-99); Sodium, Blood 142 mmol/L (136-145)
--- NOTE | 2020-06-26 10:57 | NUR ---
no acute changes noted during shift, eager to go home, medicated as prescribed, sitting up in bed talking on phone and watching tv
--- NOTE | 2020-06-26 15:35 | NUR ---
UPDATE 06/26/20 1521: PER CHART REVIEW WITH DR. ESQUIVEL THIS AM, PT. LIKELY TO DISCHARGE TOMORROW. I MET WITH PT. TODAY AND SHE STATES SHE IS DOING WELL. WE REVIEWED HER DISCHARGE PLAN. SHE HAS A GREAT SUPPORT SYSTEM AT HOME INCLUDING HER WHO WILL BE PICKING HER UP POST DISCHARGE. HE WILL ALSO PICK-UP ANY PRESCRIPTIONS SENT IN FOR HER. NO STAIRS AT HOME. NO CONCERNS OF FALL RISK. PT. STATED THAT SHE HAS EVERYTHING THAT SHE NEEDS AT HOME.
--- NOTE | 2020-06-26 19:30 | NUR ---
called dr vee/diet and iv, he agreed to dc iv abx, but kept her on full liquids, call light in reach, rm air, no IV, able to transfer to bathroom on own, shared bsr with pt and noc nurse
--- NOTE | 2020-06-27 04:04 | NUR ---
SUMMARY NO NEW ISSUES OR COMPLAINTS. PT SLEPT WELL T/O SHIFT. PT CURRENTLY SLEEPING IN NO DISTRESS. CALL LIGHT IN REACH.
[2020-06-27 04:46] LABS: BASOPHILS ABSOLUTE AUTO 0.07 K/mm3 (0.00-0.23); BASOPHILS PERCENT AUTO 0 % (0-2); EOSINOPHILS ABSOLUTE AUTO 0.63 K/mm3 (0.00-0.68); EOSINOPHILS PERCENT AUTO 4 % (0-6); Hematocrit 31.7 % (33.0-51.0); Hemoglobin 9.9 g/dL (11.5-16.0); IMMATURE GRAN ABSOLUTE AUTO 0.06 K/mm3 (0.00-0.10); IMMATURE GRAN PERCENT AUTO 0 % (0-1); LYMPHOCYTES ABSOLUTE AUTO 3.19 K/mm3 (0.84-5.20); LYMPHOCYTES PERCENT AUTO 19 % (21-46); MONOCYTES ABSOLUTE AUTO 1.51 K/mm3 (0.16-1.47); MONOCYTES PERCENT AUTO 9 % (4-13); Mean Corpuscular HGB 26.1 pg (26.0-34.0); Mean Corpuscular HGB Conc 31.2 g/dL (31.5-36.5); Mean Corpuscular Volume 83 fL (80-100); Mean Platelet Volume 9.3 fL (9.1-12.4); NEUTROPHILS ABSOLUTE AUTO 11.73 K/mm3 (1.96-9.15); NEUTROPHILS PERCENT AUTO 68 % (41-73); Platelet Count 324 K/mm3 (150-400); RDW Coefficient Variation 15.1 % (11.7-14.2); RDW Standard Deviation 45.9 fL (35.1-46.3); White Blood Cell Count 17.19 K/mm3 (4.00-11.30)
[2020-06-27 05:04] LABS: Anion Gap 5 mmol/L (6-16); Blood Urea Nitrogen 5 mg/dL (8-24); Bun/Creatinine Ratio 7.7 (12.0-20.0); CO2, Blood 26 mmol/L (21-32); Calcium, Blood 8.2 mg/dL (8.5-10.1); Chloride, Blood 110 mmol/L (98-108); Creatinine, Blood 0.65 mg/dL (0.40-1.00); Glomerular Filtration Rate >60 (60-); Glucose, Blood 85 mg/dL (70-99); Potassium, Blood 3.4 mmol/L (3.5-5.5); Sodium, Blood 141 mmol/L (136-145)
[2020-06-27] MEDS ORDERED: AMOCLA875 PO (11:54)
[2020-06-27] MEDS ORDERED: VISBIOME 112.51 EACH PO (11:55)
--- NOTE | 2020-06-27 12:20 | NUR ---
PATIENT D/C'D TO HOME WITH . DC INSTRUCTIONS AND EDUCATION DISCUSSED WITH PATIENT AND COPY PROVIDED. RX MEDICATIONS FAXED TO [facility] IN [place]. PATIENT DENIES ANY FURTHER QUESTIONS OR CONCERNS.
--- NOTE | 2020-06-27 12:21 | NUR ---
UPDATE 06/27/20: PT. DISCHARGING HOME. SCHEDULED FOR F/U 07/10/20 AT 1200. REVIEWED DISCHARGE PLAN AND CONFIRMED PT. HAD TRANSPORTATION HOME FROM , CONFIRMED PHARMACY INFO, AND ANSWERED QUESTIONS. PT. IS AWARE OF APPOINTMENT TIME/TIME. [facility] CONTACT INFO GIVEN TO PT. TO CALL IF CONCERNS.
--- NOTE | 2020-07-03 01:25 | NUR ---
LATE ENTRY The order entered on June 24 at 1953 was written erroneously by this RN under the wrong physicians name. Isolation order should have been entered under the order of Dr. Samuel Thurman, and not Dr. Valeria Thurman.
== END 2020-06-27 12:17 | disposition home or self-care (01) | DRG 394 ==
LOC: MEDS 10:34 → ENPENDDIS 06-27 10:54 → MEDS 06-27 12:17
PROVIDERS: Internal Medicine Gastroenterology; ADMIT Hospitalist
DX: K55.9 Vascular disorder of intestine, unspecified (principal); A09 Infectious gastroenteritis and colitis, unspecified; D62 Acute posthemorrhagic anemia; Z79.82 Long term (current) use of aspirin; E03.9 Hypothyroidism, unspecified; E78.5 Hyperlipidemia, unspecified; K21.9 Gastro-esophageal reflux disease without esophagitis; E87.6 Hypokalemia; J45.909 Unspecified asthma, uncomplicated; Z79.52 Long term (current) use of systemic steroids; K57.30 Diverticulosis of large intestine without perforation or abscess without bleeding; J47.9 Bronchiectasis, uncomplicated; D72.829 Elevated white blood cell count, unspecified; E66.9 Obesity, unspecified; Z68.29 Body mass index [BMI] 29.0-29.9, adult
CPT/HCPCS: 0097U; 36415; 74177; 80048; 80053; 83735; 84100; 85014; 85018; 85025; 85651; 86140; A9270; C9113; J0295; J7120; J7512; Q9967

== ENCOUNTER → 2020-06-24 | Outpatient (CLI) | payer MEDICARE ==
[2020-06-24 09:37] LABS: BASOPHILS ABSOLUTE AUTO 0.08 K/mm3 (0.00-0.23); BASOPHILS PERCENT AUTO 1 % (0-2); EOSINOPHILS ABSOLUTE AUTO 0.34 K/mm3 (0.00-0.68); EOSINOPHILS PERCENT AUTO 2 % (0-6); Hematocrit 39.7 % (33.0-51.0); Hemoglobin 12.6 g/dL (11.5-16.0); IMMATURE GRAN ABSOLUTE AUTO 0.06 K/mm3 (0.00-0.10); IMMATURE GRAN PERCENT AUTO 0 % (0-1); LYMPHOCYTES ABSOLUTE AUTO 3.26 K/mm3 (0.84-5.20); LYMPHOCYTES PERCENT AUTO 19 % (21-46); MONOCYTES PERCENT AUTO 11 % (4-13); Mean Corpuscular HGB 26.1 pg (26.0-34.0); Mean Corpuscular HGB Conc 31.7 g/dL (31.5-36.5); Mean Corpuscular Volume 82 fL (80-100); Mean Platelet Volume 9.5 fL (9.1-12.4); NEUTROPHILS ABSOLUTE AUTO 11.47 K/mm3 (1.96-9.15); NEUTROPHILS PERCENT AUTO 67 % (41-73); Platelet Count 405 K/mm3 (150-400); RDW Coefficient Variation 15.3 % (11.7-14.2); RDW Standard Deviation 45.6 fL (35.1-46.3); Red Blood Cell Count 4.83 M/mm3 (3.80-5.20); White Blood Cell Count 17.11 K/mm3 (4.00-11.30)
== END | disposition home or self-care (01) ==
LOC: LAB SHORT 09:34 → LAB 09:34 → LAB EV 09:34
PROVIDERS: Physician Assistant
DX: K92.2 Gastrointestinal hemorrhage, unspecified (principal)
CPT/HCPCS: 85025

== ENCOUNTER → 2020-10-27 | Outpatient (CLI) | payer MEDICARE ==
[~2020-10-27] MED LIST changes: +AMOCLA875 PO; +VISBIOME 112.51 EACH PO
[2020-10-28 11:02] LABS: Candida species (DNA Probe) Negative (NEGATIVE); G. vaginalis (DNA Probe) Negative (NEGATIVE); T. vaginalis (DNA Probe) Negative (NEGATIVE)
== END ==
LOC: LAB SHORT 10:15
PROVIDERS: Family Medicine
DX: N76.0 Acute vaginitis (principal)
CPT/HCPCS: 87480; 87510; 87660

== ENCOUNTER → 2021-08-11 | Outpatient (CLI) | payer OTHER | END | disposition home or self-care (01) | LOC: LAB SHORT 12:34 → LAB 12:34 | DX: S51.802A Unspecified open wound of left forearm, initial encounter (principal) | CPT/HCPCS: 87070; 87075; 87077; 87147; 87186; 87205 ==

== ENCOUNTER → 2022-09-14 | Outpatient (CLI) | payer OTHER ==
[~2022-09-14] MED LIST changes: +METOPROLOL TART25 MG PO; +PROM25 PO; +ZOLOFT50 MG PO
== END | disposition home or self-care (01) ==
LOC: LAB SHORT 09:48 → LAB 09:48
DX: N39.0 Urinary tract infection, site not specified (principal)
CPT/HCPCS: 87077; 87086; 87186

== ENCOUNTER → 2022-10-03 | Outpatient (CLI) | payer OTHER ==
[2022-10-03 10:09] LABS: BASOPHILS ABSOLUTE AUTO 0.09 K/mm3 (0.00-0.23); BASOPHILS PERCENT AUTO 1 % (0-2); EOSINOPHILS ABSOLUTE AUTO 0.81 K/mm3 (0.00-0.68); EOSINOPHILS PERCENT AUTO 6 % (0-6); Hematocrit 39.6 % (33.0-51.0); Hemoglobin 13.1 g/dL (11.5-16.0); IMMATURE GRAN ABSOLUTE AUTO 0.05 K/mm3 (0.00-0.10); IMMATURE GRAN PERCENT AUTO 0 % (0-1); LYMPHOCYTES ABSOLUTE AUTO 1.27 K/mm3 (0.84-5.20); LYMPHOCYTES PERCENT AUTO 9 % (21-46); MONOCYTES ABSOLUTE AUTO 1.18 K/mm3 (0.16-1.47); MONOCYTES PERCENT AUTO 8 % (4-13); Mean Corpuscular HGB 28.9 pg (26.0-34.0); Mean Corpuscular HGB Conc 33.1 g/dL (31.5-36.5); Mean Corpuscular Volume 87 fL (80-100); Mean Platelet Volume 9.6 fL (9.1-12.4); NEUTROPHILS ABSOLUTE AUTO 11.25 K/mm3 (1.96-9.15); NEUTROPHILS PERCENT AUTO 77 % (41-73); Platelet Count 337 K/mm3 (150-400); RDW Coefficient Variation 15.1 % (11.7-14.2); RDW Standard Deviation 48.1 fL (35.1-46.3); Red Blood Cell Count 4.54 M/mm3 (3.80-5.20); White Blood Cell Count 14.65 K/mm3 (4.00-11.30)
[2022-10-03 10:15] LABS: Source, Urine Clean Catch
[2022-10-03 10:18] LABS: Albumin/Globulin Ratio 0.7 (0.8-1.8); Bilirubin, Total 0.6 mg/dL (0.1-1.0); Bun/Creatinine Ratio 15.1 (12.0-20.0); Creatinine, Blood 0.86 mg/dL (0.40-1.00); Globulin, Blood 4.2 g/dL (2.2-4.0); Potassium, Blood 3.5 mmol/L (3.5-5.5); Total Protein, Blood 7.2 g/dL (6.4-8.2)
[2022-10-03 10:28] LABS: Squamous Epithelial Cells Few /hpf (Few)
[2022-10-03 10:29] LABS: Bacteria Mod /hpf; Mucus Mod (0-Heavy)
== END ==
LOC: LAB SHORT 10:03 → LAB 10:03
PROVIDERS: Emergency Medicine
DX: R11.0 Nausea (principal)
CPT/HCPCS: 80053; 81015; 83690; 85025

== ENCOUNTER 2023-02-06 08:50 | Emergency (ER) | payer OTHER ==
[~2023-02-06] VITALS: Ht 170.2 cm; Wt 78.0 kg
[2023-02-06 09:26] LABS: BASOPHILS ABSOLUTE AUTO 0.08 K/mm3 (0.00-0.23); BASOPHILS PERCENT AUTO 1 % (0-2); EOSINOPHILS ABSOLUTE AUTO 0.34 K/mm3 (0.00-0.68); EOSINOPHILS PERCENT AUTO 4 % (0-6); Hematocrit 38.1 % (33.0-51.0); Hemoglobin 12.4 g/dL (11.5-16.0); IMMATURE GRAN ABSOLUTE AUTO 0.02 K/mm3 (0.00-0.10); IMMATURE GRAN PERCENT AUTO 0 % (0-1); LYMPHOCYTES ABSOLUTE AUTO 2.31 K/mm3 (0.84-5.20); LYMPHOCYTES PERCENT AUTO 24 % (21-46); MONOCYTES ABSOLUTE AUTO 1.12 K/mm3 (0.16-1.47); MONOCYTES PERCENT AUTO 12 % (4-13); Mean Corpuscular HGB 27.3 pg (26.0-34.0); Mean Corpuscular HGB Conc 32.5 g/dL (31.5-36.5); Mean Corpuscular Volume 84 fL (80-100); Mean Platelet Volume 9.4 fL (9.1-12.4); NEUTROPHILS ABSOLUTE AUTO 5.64 K/mm3 (1.96-9.15); NEUTROPHILS PERCENT AUTO 59 % (41-73); Platelet Count 283 K/mm3 (150-400); RDW Standard Deviation 48.8 fL (35.1-46.3); Red Blood Cell Count 4.55 M/mm3 (3.80-5.20); White Blood Cell Count 9.51 K/mm3 (4.00-11.30)
[2023-02-06 09:50] LABS: Albumin, Blood 3.2 g/dL (3.4-5.0); Albumin/Globulin Ratio 0.9 (0.8-1.8); Bilirubin, Total 0.6 mg/dL (0.1-1.0); Bun/Creatinine Ratio 24.8 (12.0-20.0); Calcium, Blood 8.4 mg/dL (8.5-10.1); Creatinine, Blood 0.61 mg/dL (0.40-1.00); Globulin, Blood 3.7 g/dL (2.2-4.0); Potassium, Blood 3.7 mmol/L (3.5-5.5); Total Protein, Blood 6.9 g/dL (6.4-8.2)
[2023-02-06 17:48] VITALS: BP 128/76
== END 2023-02-06 17:50 | disposition home or self-care (01) ==
LOC: ER 08:50
PROVIDERS: Physician Assistant
DX: R20.2 Paresthesia of skin (principal); R07.9 Chest pain, unspecified; R20.0 Anesthesia of skin; I10 Essential (primary) hypertension; E78.5 Hyperlipidemia, unspecified; J45.909 Unspecified asthma, uncomplicated; K21.9 Gastro-esophageal reflux disease without esophagitis; M85.80 Other specified disorders of bone density and structure, unspecified site; M19.90 Unspecified osteoarthritis, unspecified site; E03.9 Hypothyroidism, unspecified; H40.9 Unspecified glaucoma; Z79.82 Long term (current) use of aspirin; Z79.899 Other long term (current) drug therapy; Z88.1 Allergy status to other antibiotic agents; Z88.2 Allergy status to sulfonamides; Z88.8 Allergy status to other drugs, medicaments and biological substances
CPT/HCPCS: 70450; 71046; 80053; 83690; 84484; 85025; 93005; 93010; 99284-25

== ENCOUNTER → 2023-07-25 | Outpatient (CLI) | payer OTHER | LOC: LAB 12:47 → LAB SHORT 12:47 | DX: N30.01 Acute cystitis with hematuria (principal) | CPT/HCPCS: 87077; 87086; 87186 ==

== ENCOUNTER → 2024-02-20 | Outpatient (CLI) | payer OTHER | LOC: LAB SHORT 15:37 → LAB 15:37 | DX: R31.9 Hematuria, unspecified (principal) | CPT/HCPCS: 87077; 87086; 87186 ==

== ENCOUNTER → 2024-02-23 | Outpatient (CLI) | payer OTHER ==
[2024-02-23 15:41] LABS: BASOPHILS ABSOLUTE AUTO 0.07 K/mm3 (0.00-0.23); BASOPHILS PERCENT AUTO 0 % (0-2); EOSINOPHILS ABSOLUTE AUTO 0.85 K/mm3 (0.00-0.68); EOSINOPHILS PERCENT AUTO 5 % (0-6); Hematocrit 37.3 % (33.0-51.0); Hemoglobin 11.8 g/dL (11.5-16.0); IMMATURE GRAN ABSOLUTE AUTO 0.06 K/mm3 (0.00-0.10); IMMATURE GRAN PERCENT AUTO 0 % (0-1); LYMPHOCYTES ABSOLUTE AUTO 1.72 K/mm3 (0.84-5.20); LYMPHOCYTES PERCENT AUTO 11 % (21-46); MONOCYTES ABSOLUTE AUTO 0.91 K/mm3 (0.16-1.47); MONOCYTES PERCENT AUTO 6 % (4-13); Mean Corpuscular HGB 25.3 pg (26.0-34.0); Mean Corpuscular HGB Conc 31.6 g/dL (31.5-36.5); Mean Corpuscular Volume 80 fL (80-100); Mean Platelet Volume 9.9 fL (9.1-12.4); NEUTROPHILS ABSOLUTE AUTO 12.63 K/mm3 (1.96-9.15); NEUTROPHILS PERCENT AUTO 78 % (41-73); Platelet Count 403 K/mm3 (150-400); RDW Standard Deviation 43.4 fL (35.1-46.3); Red Blood Cell Count 4.66 M/mm3 (3.80-5.20); White Blood Cell Count 16.24 K/mm3 (4.00-11.30)
[2024-02-23 15:49] LABS: Albumin, Blood 3.2 g/dL (3.4-5.0); Albumin/Globulin Ratio 0.7 (0.8-1.8); Bilirubin, Total 1.1 mg/dL (0.1-1.0); Bun/Creatinine Ratio 16.3 (12.0-20.0); Calcium, Blood 8.5 mg/dL (8.5-10.1); Creatinine, Blood 0.8 mg/dL (0.40-1.00); Globulin, Blood 4.4 g/dL (2.2-4.0); Total Protein, Blood 7.6 g/dL (6.4-8.2)
== END ==
LOC: LAB SHORT 15:31 → LAB 15:31
PROVIDERS: Chiropractor
DX: R11.2 Nausea with vomiting, unspecified (principal)
CPT/HCPCS: 80053; 83690; 85025

== ENCOUNTER → 2024-06-20 | Outpatient (CLI) | payer OTHER | LOC: LAB SHORT 13:43 → LAB 13:43 | DX: N39.0 Urinary tract infection, site not specified (principal); R42 Dizziness and giddiness | CPT/HCPCS: 87077; 87086; 87186 ==

== ENCOUNTER → 2024-12-31 | Outpatient (CLI) | payer OTHER | END | disposition home or self-care (01) | LOC: LAB SHORT 09:54 → LAB 09:54 | DX: K11.7 Disturbances of salivary secretion (principal) | CPT/HCPCS: 87075; 87081; 87205 ==